=== PATIENT | female | born 1990 | race Caucasian/White ===

== ENCOUNTER → 2020-10-05 | Outpatient (REF) | payer OTHER ==
[2020-10-05 14:16] LABS: HEMATOCRIT 35.1 % (36.0-47.0); HEMOGLOBIN 11.7 g/dl (12.0-15.5); MEAN CORPUSCULAR HGB CONC 33.3 g/dl (32.0-36.5); MEAN CORPUSCULAR VOLUME 86.9 fl (80.0-96.0); PLATELET COUNT, AUTOMATED 311 10^3/uL (150-450); RED BLOOD COUNT 4.04 10^6/uL (4.00-5.40); WHITE BLOOD COUNT 7.5 10^3/uL (4.0-10.0)
[2020-10-05 15:31] LABS: HEPATITIS C VIRUS ABY INDEX < 0.0 INDEX (<0.8); HIV 1&2 SCREEN CENTAUR NEGATIVE (NEGATIVE)
== END ==
LOC: M PLALAB 10:37
PROVIDERS: ATTEND Advanced Practice Midwife
DX: Z34.91 Encounter for supervision of normal pregnancy, unspecified, first trimester (principal); Z3A.00 Weeks of gestation of pregnancy not specified

== ENCOUNTER 2020-11-11 00:30 | Emergency (ER) | payer OTHER ==
[~2020-11-11] VITALS: Ht 165.1 cm; Wt 109.0 kg
[2020-11-11] MEDS ORDERED: ALBU8.5H INH (00:40)
[2020-11-11] MEDS ORDERED: GNP28TAB2 PO (00:40)
[2020-11-11] MEDS ORDERED: ALBU83IN INH (00:40)
[2020-11-11] MEDS ORDERED: ADVA45AE INH (00:40)
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
[2020-11-11 03:30] VITALS: BP 134/73
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
== END 2020-11-11 03:42 | disposition home or self-care (01) ==
LOC: M ED 00:30
DX: O9A.319 Physical abuse complicating pregnancy, unspecified trimester (principal); S39.91XA Unspecified injury of abdomen, initial encounter; W50.0XXA Accidental hit or strike by another person, initial encounter; O99.332 Smoking (tobacco) complicating pregnancy, second trimester; Y92.9 Unspecified place or not applicable; Y93.9 Activity, unspecified; Y99.9 Unspecified external cause status; Z3A.00 Weeks of gestation of pregnancy not specified; Z91.040 Latex allergy status

== ENCOUNTER → 2020-11-24 | Outpatient (CLI) | payer OTHER ==
[~2020-11-24] MED LIST: ADVA45AE INH; ALBU8.5H INH; ALBU83IN INH; GNP28TAB2 PO
--- NOTE | 2020-11-24 13:00 | REP ---
INDICATION: ANATOMY. COMPARISON: Comparison study November 11, 2020.. TECHNIQUE: Transabdominal obstetric sonography. FINDINGS: Scanning through the gravid uterus demonstrates a viable single intrauterine gestation in variable lie. motion is observed and heart rate is recorded at 152 beats per minute. A posterior placenta is seen, grade 1, without evidence of placenta previa. Closed cervical length is measured at 4.4 cm transabdominally. No extrauterine abnormality is observed. Amniotic fluid is subjectively normal. No anomaly is seen. The following anatomic structures are identified and felt to be sonographically unremarkable: cranium, choroid plexus, cavum, cerebellum and posterior fossa, face and profile, lungs, four-chamber heart with left and right ventricular outflow tract views, diaphragm, left-sided stomach, abdominal wall cord insertion, three-vessel umbilical cord, kidneys and bladder, spine, and upper and lower extremities. Biometry chart: BPD 4.5 cm, 19 weeks 5 days Head circumference 17.2 cm, 19 weeks 5 days Abdominal circumference 15.0 cm, 20 weeks 2 days Femur length 3.1 cm, 19 weeks 5 days Humeral length 3.0 cm, 19 weeks 6 days HC AC ratio normal 1.14 Cephalic index normal 0.72 Estimated weight and 323 g, 0 lb 11 oz, 82nd percentile for 19 weeks 2 days IMPRESSION: Viable single intrauterine gestation at 19 weeks 6 days by today's composite sonographic criteria. JUANY by today's sonography April 14, 2021. No complication identified. Expected gestational age estimate based on known JUANY of 04/18/2021 is 19 weeks 2 days. anatomic survey is felt to be complete. <Electronically signed by Eloy Greenfield > 11/24/20 [id number]
== END ==
LOC: M WHC 10:26
PROVIDERS: ATTEND Advanced Practice Midwife
DX: Z36.9 Encounter for antenatal screening, unspecified (principal); Z3A.19 19 weeks gestation of pregnancy
CPT/HCPCS: 76811; G0463

== ENCOUNTER → 2020-12-15 | Outpatient (REF) | payer OTHER | LOC: M PLALAB 16:53 | PROVIDERS: ATTEND Obstetrics & Gynecology | DX: G40.909 Epilepsy, unspecified, not intractable, without status epilepticus (principal); Z3A.22 22 weeks gestation of pregnancy ==

== ENCOUNTER 2021-03-16 21:59 | Outpatient (CLI) | payer OTHER, SELFPAY ==
[~2021-03-16] VITALS: Ht 167.6 cm; Wt 113.2 kg
[~2021-03-16 21:59] MED LIST changes: -KEPP10002 PO
[2021-03-16 22:24] VITALS: BP 134/88
[2021-03-16] MEDS ORDERED: KEPP10002 PO (22:29)
[2021-03-16] MEDS ORDERED: LR 1,000 ML IV SCH (23:10)
[2021-03-16] MEDS ORDERED: LACTATED RINGER'S 1000 ML IV ONE (23:10)
[2021-03-16] MEDS ORDERED: BETAMETHASONE SOLUSPAN 6MG/ML 5ML VIAL (J0702 PER 3MG) IM SCH (23:15)
[2021-03-17 00:11] LABS: HEMATOCRIT 34.5 % (36.0-47.0); HEMOGLOBIN 11.4 g/dl (12.0-15.5); MEAN CORPUSCULAR HEMOGLOBIN 28.6 pg (27.0-33.0); MEAN CORPUSCULAR VOLUME 86.7 fl (80.0-96.0); PLATELET COUNT, AUTOMATED 269 10^3/uL (150-450); RED BLOOD COUNT 3.98 10^6/uL (4.00-5.40); WHITE BLOOD COUNT 13.1 10^3/uL (4.0-10.0)
[2021-03-17] MEDS ORDERED: PROMETHAZINE INJ 25 MG/ML VIAL (J2550) IV ONE (00:40)
[2021-03-17] MEDS ORDERED: BUTORPHANOL 2 MG/ML INJ (J0595) IV ONE (00:40)
[2021-03-17 01:08] VITALS: BP 104/65
--- NOTE | 2021-03-17 01:16 | IPNPDOC ---
Text Note Date of Service The patient was seen on 03/17/21. NOTE Subjective: Katie is a 30-year-old female who is a at 35.2 weeks gestation with an JUANY of 04/18/21. She initiated care in her first trimester with [facility]. Her has been complicated by a seizure disorder, which she stopped taking her Keppra and starting smoking marijuana to help with control. She is also obese and has asthma. She was seen in the office yesterday and a growth sono was ordered for 03/17/21 due to uterine size being greater than dates. She also refused to do the glucola test and today was found to have a prediabetic range HgA1c of 5.8. She presents to L&D with complaints of contractions. She denies leaking of fluid or vaginal bleeding. Reports active movement. OB Hx: -12/18/07: 40 week of living male, no complications -06/14/11: twin at 31.6 weeks; both female, +PPROM -11/24/12: of living female at 37.4 weeks -12/25/14: of living female at 41.5 weeks gestation weighing 4 lbs 6 oz -07/15/18 of living male weighing 6 lbs 4 oz -I06/07/19 [facility] Medical Hx: obesity, seizure disorder-stopped taking Keppra and is now using marijuana; Asthma: using Albuterol and Advair Surgical Hx: oral surgery Family Hx: diabetes, bone cancer, brain cancer Social Hx: Most of her children live in [place], she doesn't have primary custody. She is a current everyday smoker. She also uses marijuana. Denies alcohol use. Objective: VS and labs: see below. FHR:120, moderate variability, positive accelerations, no decelerations. [place]: contractions every 1 to 4 minutes. General: Alert and oriented. Appears to be uncomfortable with contractions. Her face has a large amount of acne and she is missing multiple teeth. Respiratory: breathing comfortably with room air. Abdomen: soft between contractions. Contractions palpate moderate. Bedside ultrasound: cephalic presentation, AMANDA 12 cm SCE: 1/80/-2, soft, midposition, no show. Rechecked after 1.5 hours due to patient reporting increased pain and pressure. 1-2 cm/80% effaced/-2 station, no show. Minimal change. Assessment: IUP at 35.3 weeks gestation, contractions Plan: GBS obtained. Ultrasound done for presentation and fluid. Betamethasone IM started for now and again in 24 hours. Stadol and Phenergan ordered for pain management. Will start antibiotics for GBS prophylaxis if patient has further cervical change. Will continue to monitor and admit if she changes to active labor. VS,Fishbone, I+O VS, Fishbone, I+O Laboratory Tests 03/16/21 23:28 Vital Signs Date Time Temp Pulse Resp B/P (MAP) Pulse Ox O2 Delivery O2 Flow Rate FiO2 03/16/21 22:24 97.4 96 18 134/88 (103) Item Value Date Time Urine Color YELLOW 03/16/212241 Urine Appearance CLOUDY H 03/16/212241 Urine pH 6.0 UNITS 03/16/212241 Urine Specific [place] 1.024 03/16/212241 Urine Protein 1+ mg/dL H 03/16/212241 Urine Glucose (UA) NEGATIVE mg/dL 03/16/212241 Urine Ketones TRACE mg/dL H 03/16/212241 Urine Blood NEGATIVE 03/16/212241 Urine Nitrite NEGATIVE 03/16/212241 Urine Bilirubin NEGATIVE 03/16/212241 Urine Urobilinogen 2.0 mg/dL H 03/16/212241 Urine Leukocyte Esterase 2+ H 03/16/212241 Urine WBC (Auto) 6 /HPF H 03/16/212241 Urine RBC (Auto) 2 /HPF 03/16/212241 Urine Hyaline Casts (Auto) 0 /LPF 03/16/212241 Urine Bacteria (Auto) NEGATIVE 03/16/212241 Urine Squamous Epithelial Cells 12 /HPF 03/16/21 224 Urine Mucus (Auto) SMALL 03/16/212241 LEV FERNANDEZ CNM Mar 17, 2021 01:16
[2021-03-17 05:59] VITALS: BP 101/54
[2021-03-17 08:01] VITALS: BP 126/60
--- NOTE | 2021-03-17 08:06 | IPNPDOC ---
Text Note Date of Service The patient was seen on 03/17/21. NOTE S: c/o contractions, intermittent O: AVSS NAD Abd: NT, gravid FHT: Category I toco: irregular, mild SVE: 2 cm/50%/-2 moderate, vtx (no change since last exam) ext: NT A/P 30 yo at 35 3/7 weeks with contractions, not in labor Discharge home Pt observed for an extended time fu office 03/23/2021 as scheduled VS,Nancie, I+O VS, [place], I+O Laboratory Tests 03/16/21 23:28 Vital Signs Date Time Temp Pulse Resp B/P (MAP) Pulse Ox O2 Delivery O2 Flow Rate FiO2 03/17/21 05:59 78 18 101/54 (70) 03/17/21 01:08 97.8 03/17/21 00:53 Room Air I&O- Last 24 Hours up to 6 AM 03/17/21 06:00 Intake Total 1000 ml Balance 1000 ml KARLEE MOULTON MD Mar 17, 2021 08:06
== END 2021-03-17 08:30 | disposition home or self-care (01) ==
LOC: M LDO 21:59
PROVIDERS: ATTEND Advanced Practice Midwife
DX: O60.03 Preterm labor without delivery, third trimester (principal); O99.353 Diseases of the nervous system complicating pregnancy, third trimester; O99.810 Abnormal glucose complicating pregnancy; O99.213 Obesity complicating pregnancy, third trimester; G40.89 Other seizures; Z3A.35 35 weeks gestation of pregnancy
CPT/HCPCS: 59025; 76815; 81001; 85027; 87081; 87086; 96360; 96361; 96372; 96374; 96375; G0378; G0463; J0595; J0702

== ENCOUNTER → 2021-03-16 | Outpatient (CLI) | payer OTHER, SELFPAY ==
[~2021-03-16] MED LIST changes: +KEPP10002 PO
[2021-03-16 15:32] LABS: HEMATOCRIT 32.9 % (36.0-47.0); HEMOGLOBIN 10.9 g/dl (12.0-15.5); MEAN CORPUSCULAR HEMOGLOBIN 29.1 pg (27.0-33.0); MEAN CORPUSCULAR HGB CONC 33.1 g/dl (32.0-36.5); MEAN CORPUSCULAR VOLUME 87.7 fl (80.0-96.0); PLATELET COUNT, AUTOMATED 279 10^3/uL (150-450); RED BLOOD COUNT 3.75 10^6/uL (4.00-5.40); WHITE BLOOD COUNT 9.9 10^3/uL (4.0-10.0)
[2021-03-16 15:50] LABS: HEMOGLOBIN A1c 5.8 %
== END ==
LOC: M PLALAB 13:04
PROVIDERS: ATTEND Advanced Practice Midwife
DX: Z34.93 Encounter for supervision of normal pregnancy, unspecified, third trimester (principal); Z3A.35 35 weeks gestation of pregnancy

== ENCOUNTER 2021-03-17 17:48 | Outpatient (CLI) | payer OTHER ==
[~2021-03-17] VITALS: Ht 167.6 cm; Wt 114.1 kg
[2021-03-17] MEDS ORDERED: BETAMETHASONE SOLUSPAN 6MG/ML 5ML VIAL (J0702 PER 3MG) IM ONE (18:00)
--- NOTE | 2021-03-17 18:02 | IPNPDOC ---
Text Note Date of Service The patient was seen on 03/17/21. NOTE S:30 yo at 35 3/7 weeks presents for 2nd Betamethasone dose. O: AVSS NAD Abd: NT, gravid FHT: Cat. I toco: irregular A/P30 yo at 35 3/7 weeks presents for 2nd Betamethasone dose Second dose give fu office as scheduled KARLEE MOULTON MD Mar 17, 2021 18:02
== END 2021-03-17 18:30 | disposition home or self-care (01) ==
LOC: M LDO 17:48
PROVIDERS: ATTEND Specialist
DX: O60.03 Preterm labor without delivery, third trimester (principal); Z3A.35 35 weeks gestation of pregnancy
CPT/HCPCS: 59025; 96372; G0378; G0463; J0702

== ENCOUNTER → 2021-03-17 | Outpatient (CLI) | payer OTHER, SELFPAY ==
[~2021-03-17] MED LIST changes: +KEPP10002 PO
--- NOTE | 2021-03-17 15:49 | REP ---
INDICATION: F/U ANATOMY COMPARISON: 11/24/2020 TECHNIQUE: Transabdominal obstetrical ultrasound with color Doppler evaluation. FINDINGS: Examination demonstrates a single live intrauterine in cephalic presentation. motion is identified by technologist. Placenta is noted posterior and grade 3 without evidence for placenta previa or abruption. Amniotic fluid volume is normal. Cervix appears closed.. Selected gestational age: 35 weeks 3 days with JUANY 04/18/2021. Gestational age by current measurements 35 weeks 4 days with JUANY 04/17/2021. FHR equals 139 beats per minute. BPD: 8.8 cm at 35 weeks 4 days HC: 31.7 cm at 35 weeks 4 days AC: 32.0 cm at 36 weeks 0 days FL: 6.8 cm at 35 weeks 0 days HL: 6.1 cm at 35 weeks 3 days HC/AC: 0.99 Estimated weight 2731 grams (55thpercentile). AMANDA: 13.1 cm Umbilical artery SD ratio: 2.92 IMPRESSION: Single live intrauterine in cephalic presentation demonstrating appropriate interval growth. <Electronically signed by Darin Negron > 03/17/21 [id number]
== END ==
LOC: M WHC 14:42
PROVIDERS: ATTEND Advanced Practice Midwife
DX: O26.843 Uterine size-date discrepancy, third trimester (principal); Z3A.35 35 weeks gestation of pregnancy

== ENCOUNTER 2021-03-22 22:34 | Outpatient (CLI) | payer OTHER ==
[~2021-03-22] VITALS: Ht 167.6 cm; Wt 112.8 kg
[2021-03-22 22:50] VITALS: BP 142/72
[2021-03-22 23:15] VITALS: BP 132/79
== END 2021-03-22 23:23 | disposition home or self-care (01) ==
LOC: M LDO 22:34
PROVIDERS: ATTEND Obstetrics & Gynecology
DX: O26.893 Other specified pregnancy related conditions, third trimester (principal); R10.2 Pelvic and perineal pain; Z3A.36 36 weeks gestation of pregnancy
CPT/HCPCS: 59025; G0378; G0463

== ENCOUNTER 2021-03-26 10:52 | Outpatient (CLI) | payer OTHER ==
[~2021-03-26] VITALS: Ht 167.6 cm; Wt 112.0 kg
[2021-03-26 11:07] VITALS: BP 134/68
== END 2021-03-26 11:40 | disposition home or self-care (01) ==
LOC: M LDO 10:52
PROVIDERS: ATTEND Obstetrics & Gynecology
DX: O26.893 Other specified pregnancy related conditions, third trimester (principal); Z03.79 Encounter for other suspected maternal and fetal conditions ruled out; Z3A.36 36 weeks gestation of pregnancy
CPT/HCPCS: 59025; G0378; G0463

== ENCOUNTER 2021-03-28 06:17 | Outpatient (CLI) | payer OTHER ==
[~2021-03-28] VITALS: Ht 167.6 cm; Wt 110.9 kg
[2021-03-28 06:35] VITALS: BP 130/83
[2021-03-28 07:32] VITALS: BP 136/73
== END 2021-03-28 11:10 | disposition home or self-care (01) ==
LOC: M LDO 06:17
PROVIDERS: ATTEND Obstetrics & Gynecology
DX: O60.03 Preterm labor without delivery, third trimester (principal); O99.513 Diseases of the respiratory system complicating pregnancy, third trimester; O99.333 Smoking (tobacco) complicating pregnancy, third trimester; J45.909 Unspecified asthma, uncomplicated; F17.210 Nicotine dependence, cigarettes, uncomplicated; O99.353 Diseases of the nervous system complicating pregnancy, third trimester; Z3A.37 37 weeks gestation of pregnancy
CPT/HCPCS: 59025; G0378; G0463

== ENCOUNTER 2021-04-01 17:08 | Outpatient (CLI) | payer OTHER, SELFPAY ==
[~2021-04-01] VITALS: Ht 165.1 cm; Wt 112.0 kg
[2021-04-01 17:28] VITALS: BP 137/84
[2021-04-01] MEDS ORDERED: HOME MED LIST COMPLETE! XX SCH (17:30)
--- NOTE | 2021-04-01 17:53 | IPNPDOC ---
Text Note Date of Service The patient was seen on 04/01/21. NOTE Outpatient 31yo JUANY 04/18/2021. Presents with complaints of wetness and sporadic contractions for 2 days. Denies bleeding Reports good movement Cat I tracing, no UC Abdomen soft, gravid, nontender Spec exam, neg pool, neg valsalva, neg nitrazine, neg fern SVE 50/-2, no show Pt reassured. Discharged home with instructions. Keep next appt VS,Fishbone, I+O VS, Fishbone, I+O Vital Signs Date Time Temp Pulse Resp B/P (MAP) Pulse Ox O2 Delivery O2 Flow Rate FiO2 04/01/21 17:28 98.0 105 18 137/84 (101) Sona Mensah CNM Apr 01, 2021 17:53
== END 2021-04-01 17:53 | disposition home or self-care (01) ==
LOC: M LDO 17:08
PROVIDERS: ATTEND Advanced Practice Midwife
DX: O60.03 Preterm labor without delivery, third trimester (principal); O26.893 Other specified pregnancy related conditions, third trimester; Z3A.37 37 weeks gestation of pregnancy
CPT/HCPCS: 59025; G0378; G0463

== ENCOUNTER 2021-04-08 16:43 | Inpatient (IN) | payer OTHER, SELFPAY ==
[~2021-04-08] VITALS: Ht 167.6 cm; Wt 113.0 kg
[2021-04-08 16:54] VITALS: BP 126/77
[2021-04-08 19:23] VITALS: BP 119/72
[2021-04-08 20:59] VITALS: BP 120/66
[2021-04-08] MEDS ORDERED: LACTATED RINGER'S 1000 ML IV STA (22:20)
[2021-04-08] MEDS ORDERED: TRANEXAMIC ACID INJection 1,000 MG in NS 100 ML IV PRN (22:20)
[2021-04-08] MEDS ORDERED: OXYTOCIN DRIP 30 UNITS in IV 1 EA IV PRN (22:20)
[2021-04-08] MEDS ORDERED: CARBOPROST TROMETHAMINE 250 MCG/ML AMP IM PRN (22:20)
[2021-04-08] MEDS ORDERED: LR 1,000 ML IV SCH (22:20)
[2021-04-08] MEDS ORDERED: METHYLERGONOVINE MALEATE 0.2 MG/ML VIAL (J2210) IM PRN (22:20)
[2021-04-08 23:05] LABS: HEMOGLOBIN 11.3 g/dl (12.0-15.5); MEAN CORPUSCULAR HGB CONC 32.3 g/dl (32.0-36.5); MEAN CORPUSCULAR VOLUME 86.8 fl (80.0-96.0); PLATELET COUNT, AUTOMATED 280 10^3/uL (150-450); RED BLOOD COUNT 4.03 10^6/uL (4.00-5.40); WHITE BLOOD COUNT 10.9 10^3/uL (4.0-10.0)
[2021-04-08] MEDS ORDERED: FENTANYL 2MCG/ML ROPIVACAINE 0.2% IN 0.9% NACL 100ML IVBAG As Ordered ONE (23:21)
[2021-04-08] MEDS ORDERED: LACTATED RINGER'S 1000 ML IV PRN (23:46)
[2021-04-08] MEDS ORDERED: diphenhydrAMINE 50MG/ML VIAL (J1200) IV PRN (23:46)
[2021-04-08] MEDS ORDERED: EPIDURAL/PCA KEYS XX PRN (23:46)
[2021-04-08] MEDS ORDERED: REFRIGERATOR IV KEYS XX PRN (23:46)
[2021-04-08] MEDS ORDERED: FENTANYL/ROPIVACAINE/NACL BAG 100 ML EPIDURAL SCH (23:46)
[2021-04-08] MEDS ORDERED: ONDANSETRON 4MG/2ML VIAL IV PRN (23:46)
[2021-04-08] MEDS ORDERED: EPIDURAL COMMENT XX SCH (23:46)
[2021-04-08] MEDS ORDERED: NALOXONE INJ 0.4MG/1ML VIAL (J2310 PER 1MG) IV PRN (23:46)
[2021-04-08] MEDS ORDERED: ePHEDrine SULFATE 25 MG/5 ML(5MG/ML) SYRINGE IV PRN (23:46)
[2021-04-09] MEDS ORDERED: OXYTOCIN 30 UNITS IN 0.9% NaCl 500ML IV BAG (J2590) As Ordered ONE (00:21)
[2021-04-09] MEDS ORDERED: OXYTOCIN DRIP 30 UNITS in IV 1 EA IV SCH ×2 (00:25→09:20)
[2021-04-09 07:04] VITALS: BP 112/62
[2021-04-09] MEDS ORDERED: ANUSOL HC CREAM 30GM TOP PRN (09:20)
[2021-04-09] MEDS ORDERED: ACETAMINOPHEN TAB 650MG DOSE (2X325MG) PO PRN (09:20)
[2021-04-09] MEDS ORDERED: DOCUSATE SODIUM 100MG CAPSULE PO PRN (09:20)
[2021-04-09] MEDS ORDERED: IBUPROFEN 600MG TAB PO PRN (09:20)
[2021-04-09] MEDS ORDERED: RHOGAM 300 MCG (1500 IU) INJ (J2790) IM SCH (09:20)
[2021-04-09] MEDS ORDERED: MOM 30ML SUSPENSION UDC PO PRN (09:20)
[2021-04-09] MEDS ORDERED: METHYLERGONOVINE MALEATE 0.2 MG TAB PO PRN (09:20)
[2021-04-09] MEDS ORDERED: MEASLES,MUMPS,RUBELLA VACCINE INJ (MMR-II) (90707) SC SCH (09:20)
[2021-04-09] MEDS ORDERED: DIBUCAINE 1% OINTMENT 30GM TOP PRN (09:20)
[2021-04-09 13:30] VITALS: BP 126/60
[2021-04-09] MEDS: ACETAMINOPHEN 500 MG TAB PO PRN (13:33)
[2021-04-09 15:15] VITALS: BP 113/64
[2021-04-09] MEDS: IBUPROFEN 800 MG TAB PO PRN (16:12)
[2021-04-09 20:00] VITALS: BP 120/63
[2021-04-10] MEDS: IBUPROFEN 800 MG TAB PO PRN ×2 (00:24→15:07)
[2021-04-10 05:48] VITALS: BP 98/53
[2021-04-10] MEDS: ACETAMINOPHEN 500 MG TAB PO PRN ×3 (05:51→23:06)
[2021-04-10] MEDS: PRENATAL VITAMINS CHEWABLE TABLET PO SCH (09:00)
[2021-04-10 18:11] VITALS: BP 129/68
[2021-04-11 06:00] VITALS: BP 132/78
[2021-04-11] MEDS: ACETAMINOPHEN 500 MG TAB PO PRN ×2 (06:19→14:18)
[2021-04-11] MEDS: PRENATAL VITAMINS CHEWABLE TABLET PO SCH (09:08)
[2021-04-11 12:08] LABS: BASO % 0.3 % (0.0-1.0); EOS % 0.3 % (0.0-3.0); HEMATOCRIT 32.7 % (36.0-47.0); HEMOGLOBIN 10.6 g/dl (12.0-15.5); LYMPH # 1.2 10^3/uL (1.5-5.0); LYMPH % 15.9 % (24.0-44.0); MEAN CORPUSCULAR HEMOGLOBIN 28.3 pg (27.0-33.0); MEAN CORPUSCULAR HGB CONC 32.4 g/dl (32.0-36.5); MEAN CORPUSCULAR VOLUME 87.2 fl (80.0-96.0); MONO # 0.5 10^3/uL (0.0-0.8); MONO % 6.4 % (2.0-8.0); NEUTROPHILS # 5.5 10^3/uL (1.5-8.5); NEUTROPHILS % 75.6 % (36.0-66.0); PLATELET COUNT, AUTOMATED 216 10^3/uL (150-450); RED BLOOD COUNT 3.75 10^6/uL (4.00-5.40); WHITE BLOOD COUNT 7.2 10^3/uL (4.0-10.0)
[2021-04-11 18:00] VITALS: BP 127/81
[2021-04-11] MEDS ORDERED: IBUP80TA PO (21:29)
[2021-04-11] MEDS ORDERED: ACET-683 PO (21:29)
== END 2021-04-11 21:40 | disposition home or self-care (01) | DRG 806 ==
LOC: M LDO 16:43 → M LDI 22:18 → M OBS 04-09 15:23
PROVIDERS: ADMIT Advanced Practice Midwife; ATTEND Advanced Practice Midwife
PROC: 10E0XZZ Delivery of Products of Conception, External Approach (ICD-10-PCS; principal; 2021-04-09)
DX: O99.324 Drug use complicating childbirth (principal); Z37.0 Single live birth; O99.354 Diseases of the nervous system complicating childbirth; Z3A.38 38 weeks gestation of pregnancy; G40.909 Epilepsy, unspecified, not intractable, without status epilepticus; F12.90 Cannabis use, unspecified, uncomplicated; Z91.19 Patient's noncompliance with other medical treatment and regimen; Z91.040 Latex allergy status; E66.9 Obesity, unspecified; O99.214 Obesity complicating childbirth; F17.200 Nicotine dependence, unspecified, uncomplicated; O99.334 Smoking (tobacco) complicating childbirth